=== PATIENT | male | born 1950 | race Caucasian/White ===

== ENCOUNTER 2023-04-29 09:22 | Inpatient (IN) | payer OTHER ==
[~2023-04-29] VITALS: Ht 180.3 cm; Wt 81.6 kg
[~2023-04-29 09:22] MED LIST: ATENOLOL25 MG PO; CATAFLAM50 MG PO; GABAPENTIN100 MG PO; LOSARTAN-HCTZ1 EAC2 PO; ORPH100T PO; PERCOCET 5/3251 TAB PO; XARELTO10 MG PO
[2023-04-29] MEDS ORDERED: TENORMIN25 MG PO (09:46)
[2023-04-29] MEDS ORDERED: AMLODIPINE-OLM1 EAC2 PO (09:46)
[2023-04-29] MEDS ORDERED: TAMS0.4C PO (09:47)
--- NOTE | 2023-04-29 09:47 | NUR ---
PTE ALERTA Y OREINTADO X3 REFIERE VENIR A [place] COMPLICACION DE CIRUGIA EN [place] HOMBRO DERECHO. PTE FUE OPERADO EL 2023 POR DRA. MISAEL QUEZADA.
--- NOTE | 2023-04-29 10:12 | NUR ---
PTE EVALUADO POR MD [facility] [facility] A PTE SE EDUCA A PTE SOBRE LE MISMO Y PTE REFIERE ENTEDER. SE LEVA ACABO ORDENES BAJO MEDIDAS ACEPTICA. PTE PEND A RESULTADOS DE LABS.
[2023-04-29 10:16] LABS: HEMATOCRIT 37.4 % (39.0-48.0); HEMOGLOBIN 13.3 g/dL (13-16.00); MEAN CELL VOLUME 92.4 fL (80.0-100.00); MEAN CORPUSCULAR HEMOGLOBIN 32.9 pg (27.00-32.0); MEAN CORPUSCULAR HGB CONC 35.6 g/dl (32.0-36.0); PLATELET COUNT 305 K/uL (150-450); RED BLOOD COUNT 4.05 M/uL (4.00-6.00); RED CELL DISTRIBUTION WIDTH 12.9 % (11.5-14.5)
[2023-04-29 10:45] LABS: INR 1.08; PARTIAL THROMBOPLASTIN TIME 29.8 SECONDS (22.0-34.0); PROTHROMBIN TIME 11.3 SECONDS (9.0-11.5)
[2023-04-29 10:49] LABS: CALCIUM 9.8 mg/dL (8.5-10.1); CREATININE SERUM 0.86 mg/dL (0.70-1.30); GFR 87.41; POTASSIUM 4.23 mEq/L (3.5-5.1)
[2023-04-29] MEDS ORDERED: TADALAFIL10 MG (13:03)
[2023-04-29] MEDS ORDERED: AMLODIPINE BESYL5 MG (13:03)
[2023-04-29] MEDS ORDERED: ALLOPURINOL100 MG (13:03)
[2023-04-29] MEDS ORDERED: ONDANSETRON HCL 2 MG/ML VIAL IV PRN (14:00)
[2023-04-29] MEDS ORDERED: OxyCODONE HCL/APAP UD (PERCOCET) PO PRN (14:00)
[2023-04-29] MEDS ORDERED: VANCOMYCIN HCL 1,000 MG VIAL ONE (14:02)
[2023-04-29] MEDS ORDERED: POVIDONE-IODINE 118 ML BOTT TOP ONE ×2 (14:02→15:00)
[2023-04-29] MEDS ORDERED: VANCOMYCIN HCL 1,000 MG VIAL IR ONE (15:00)
[2023-04-29] MEDS ORDERED: VANCOMYCIN HCL 1,000 MG VIAL IV ONE (15:00)
[2023-04-29] MEDS ORDERED: MORPHINE SULFATE 4 MG/ML CARTRIDGE IV SCH (18:00)
[2023-04-29] MEDS ORDERED: VANCOMYCIN HCL 1,000 MG VIAL IV SCH (21:00)
[2023-04-30 09:13] LABS: PH,URINE 5.5 (5.0-8.0); URINE APPEARANCE Clear; URINE BILIRRUBIN Negative (NEGATIVE); URINE BLOOD Negative; URINE COLOR Yellow; URINE GLUCOSE Negative (NEGATIVE); URINE LEUKOCYTE Negative; URINE NITRATE Negative; URINE PROTEIN Negative (NEGATIVE); URINE UROBILINOGEN 0.2 E.U./dl
[2023-04-30 09:18] LABS: URINE BACTERIA 7.5 uL (0.0-1933); URINE EPITHELIAL CELLS 1.5 uL (0.0-38.8); URINE RBC 2.1 uL (0.0-20.8)
[2023-04-30 09:43] LABS: URINE WBC 0.6 uL (0.0-23.2)
== END 2023-04-30 11:48 | disposition home or self-care (01) | DRG 909 ==
LOC: ER 09:22 → SEC-K 11:49 → O/R 11:49 → SURG 16:25
PROVIDERS: General Practice; ADMIT Orthopaedic Surgery; ATTEND Orthopaedic Surgery
PROC: 0RJK4ZZ Inspection of Left Shoulder Joint, Percutaneous Endoscopic Approach (ICD-10-PCS; principal; 2023-04-29 13:00)
DX: T81.32XA Disruption of internal operation (surgical) wound, not elsewhere classified, initial encounter (principal); Y65.8 Other specified misadventures during surgical and medical care; Z20.822 Contact with and (suspected) exposure to COVID-19